=== PATIENT | male | born 1975 | race Caucasian/White ===

== ENCOUNTER 2022-12-13 11:54 | Emergency (ER) | payer SELFPAY ==
[2022-12-13 11:58] VITALS: BP 175/89; PULSE 101; RESP 18; TEMP 36.6; O2SAT 95; BMI 25.1
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
--- NOTE | 2022-12-13 12:19 | EKG12_ITS ---
Test Reason : Blood Pressure : / mmHG Vent. Rate : 093 BPM Atrial Rate : 093 BPM P-R Int : 168 ms QRS Dur : 106 ms QT Int : 364 ms P-R-T Axes : 054 029 043 degrees QTc Int : 452 ms Normal sinus rhythm Minimal voltage criteria for LVH, may be normal variant ( Sokolow-Martinez ) Septal infarct , age undetermined Cannot rule out Inferior infarct , age undetermined Abnormal ECG Confirmed by J CARLOS HUERTA, DANIEL ([id number]), web content editor FAMILIA RUBALCAVA ([id number]) on 12/16/2022 10:59:43 AM Referred By: Jaren Salazar Confirmed By:DANIEL WHITMAN MD
--- NOTE | 2022-12-13 12:25 | ED.RN ---
NO OLD EKGS LISTED.
[2022-12-13] MEDS: 0.9% Normal Saline 1,000 ML 1000 ML IV (12:30)
[2022-12-13 12:38] LABS: Absolute Lymphocyte Count 1.61 X10^3/uL (0.83-4.51); Absolute Neutrophil Count 10.4 X10^3/uL (2.0-7.7); Basophil# 0.05 X10^3/uL; Basophil% 0.4 % (0-1); Eosinophil# 0.03 X10^3/uL; Eosinophils% 0.2 % (0-5); Hemoglobin 18.4 g/dL (13.0-16.5); Lymphocyte # 1.61 X10^3/ul (0.83-4.51); Lymphocyte % 12.4 % (19-41); Mean Corp Hgb Conc 35.4 g/dL (32-36); Mean Corpuscular Hgb 37.2 pg (27.0-32.0); Mean Corpuscular Volume 105.1 fL (80-94); Mean Platelet Vol. 9.3 fl (6.2-12.0); Monocyte# 0.92 X10^3/uL; Monocyte% 7.1 % (0-10); NRBC Flagged by Analyzer 0 % (0-5); Neutrophil # 10.36 X10^3/uL (2.7-7.7); Neutrophil % 79.5 % (47-70); Platelet Count 191 K/mm3 (150-450); RBC Distribution Width CV 12.1 % (11.6-14.6); RBC Distribution Width SD 47.4 fl (35.1-43.9); Red Blood Count 4.95 M/mm3 (4.6-6.2)
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
[2022-12-13 12:59] LABS: ALB/GLOB Ratio 1.1 RATIO (0.9-2.4); AST(SGOT) 47 U/L (15-37); Alanine Aminotransfer ALT/SGPT 52 U/L (16-61); Alkaline Phosphatase 61 U/L (45-117); Anion Gap 8 (5-15); BUN 10 mg/dL (7-18); BUN/Creat Ratio 10.4 RATIO (10-20); Calcium,Total 9.3 mg/dL (8.5-10.1); Chloride 102 mmol/L (98-107); Creatinine, Serum 0.96 mg/dL (0.70-1.30); EST Glomerular Filtration Rate 89 mL/min (>60); Est Glom Filt Rate - Afr Amer 107 mL/min (>60); Estimated Creatinine Clearance 108.22 ml/min; Globulin 3.7 g/dL (2.2-4.2); Glucose 80 mg/dL (74-106); Protein, Total 7.7 g/dL (6.4-8.2); Sodium Level 134 mmol/L (136-145); Troponin-I HS 19 pg/mL (3.0-78.0)
[2022-12-16 11:56] LABS: Pathologist Review Reviewed
== END 2022-12-13 14:06 | disposition home or self-care (01) ==
PROVIDERS: Emergency Provider Emergency Medicine; Referring Provider Emergency Medicine; Visit Provider Emergency Medicine
DX: S06.0X0A Concussion without loss of consciousness, initial encounter (principal); R11.10 Vomiting, unspecified; M25.512 Pain in left shoulder; M54.9 Dorsalgia, unspecified; M25.551 Pain in right hip; V49.9XXA Car occupant (driver) (passenger) injured in unspecified traffic accident, initial encounter
CPT/HCPCS: 70450; 73030; 73502; 80053; 84484; 85025; 93005; 96360; 99283; J7030; A4216

== ENCOUNTER → 2023-09-26 | Outpatient (CLI) | payer MEDICAID, SELFPAY ==
--- NOTE | 2023-09-26 15:17 | MRI_ITS ---
STUDY: MRI LEFT SHOULDER REASON FOR EXAM: Male, 48 years old. pain TECHNIQUE: Standardized fat and water weighted pulse sequences were obtained in all 3 orthogonal planes. COMPARISON: X-ray 12/13/2022 FINDINGS: Normal supraspinatus tendon. Normal infraspinatus tendon. Normal subscapularis tendon. Normal teres minor tendon. Normal supraspinatus muscle. Normal infraspinatus muscle. Normal subscapularis muscle. Normal teres minor muscle. Normal glenohumeral articulation. Normal humeral head and visualized proximal humerus. Normal biceps labral complex. Normal intracapsular long biceps tendon. Normal labrum. Normal capsulo- ligamentous complex. Normal rotator interval. Normal acromioclavicular articulation. There is a Type II morphology (curved), with a neutral orientation. There is no subacromial-subdeltoid bursal fluid. There is thickening of the coracohumeral ligament with low-signal material partially effacing the subcoracoid fat triangle, compatible with adhesive capsulitis in the rotator cuff interval. Normal quadrilateral space. Normal axillary space. Normal deltoid muscle. Normal trapezius muscle. MRI/Upper Ext Joint Only(Routine) IMPRESSION: Suspect clinical adhesive capsulitis. Electronically Signed: Gideon Coyle MD at 20:58 EST ,
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
== END | disposition home or self-care (01) ==
LOC: MRI 15:16
PROVIDERS: Referring Provider Orthopaedic Surgery Sports Medicine; Visit Provider Orthopaedic Surgery Sports Medicine
DX: M25.512 Pain in left shoulder (principal)
CPT/HCPCS: 73221

== ENCOUNTER 2023-10-10 12:55 | Outpatient (RCR) | payer MEDICAID, SELFPAY ==
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
--- NOTE | 2023-12-08 11:30 | HP.PT.NRP ---
Patient Information Patient Information: CYRIL REED was seen in my office for initial evaluation on 10/10/23. The following Plan of Care was established for this patient: POC Established Initial Frequency: 2x /Week Initial Duration: 4 Weeks Anticipated Interventions Patient/Client Instruction: Educate patient on: Condition and Plan of Care For the Purpose of:: To decrease pain, To increase ROM, To improve nutrient delivery to tissue, To increase oxygenation perfusion, To improve muscle performance and motor function, To improve ability to perform ADL's, To increase tolerance to activity/condition/position, To improve ability of physical actions for home/community/work/leisure, To improve health of tissue, To decrease soft tissue restriction, To increase flexibility/ROM, To assume or resume ADL's, To reduce risk of recurrence, To prevent re-injury and To improve tolerance to ADL's Therapeutic Exercise to Include: Strength training, Postural training, Flexibilty training, Passive ROM, Active ROM and Scapular Strength/Stabilization For the Purpose of:: To decrease pain, To increase ROM, To improve nutrient delivery to tissue, To increase oxygenation perfusion, To improve muscle performance and motor function, To increase tolerance to activity/condition/position, To improve ability of physical actions for home/community/work/leisure, To improve health of tissue, To decrease soft tissue restriction, To increase flexibility/ROM, To assume or resume ADL's and To improve tolerance to ADL's Manual Therapy Techniques to Include: Mobilization, Passive ROM and Soft tissue mobilization Comment: G-H For the Purpose of:: To decrease pain, To increase ROM, To improve nutrient delivery to tissue, To increase oxygenation perfusion, To improve health of tissue, To decrease soft tissue restriction and To increase flexibility/ROM TENS: Yes IF ES: Yes Cryotherapy (ice pack, ice massage): Yes Thermo therapy (hot pack): Yes Ultrasound (thermal/non thermal): Yes For the Purpose of:: To decrease pain, To increase ROM, To improve nutrient delivery to tissue, To increase oxygenation perfusion, To improve health of tissue and To decrease soft tissue restriction Last Seen Last Seen: This patient was last seen in our office . Pertinent comments regarding their Physical therapy will appear below: Patient was seen for PT for shoulder pain and frozen shoulder evaluation and HEP At this point I will be discontinuing this patient from physical therapy. I would be happy to see this patient again in the future if found appropriate by the physician. Thank you! Nils Bhat, PT, Cert MDT, OCS Balance/Gait/Functional tests Balance/Special Test Scores Quick DASH Score: 63.9862
== END 2023-10-10 19:00 | disposition home or self-care (01) ==
LOC: PT 12:55
PROVIDERS: Referring Provider Orthopaedic Surgery Sports Medicine; Visit Provider Orthopaedic Surgery Sports Medicine
DX: M75.02 Adhesive capsulitis of left shoulder (principal); M25.512 Pain in left shoulder
CPT/HCPCS: 97110; 97162

== ENCOUNTER 2024-05-05 07:02 | Day surgery (SDC) | payer MEDICAID, SELFPAY ==
[2024-05-05] VITALS (7 sets, daily range): BP systolic 106–147; BP diastolic 69–88; PULSE 77–100; RESP 16; TEMP 36.3–36.8; O2SAT 95–100; BMI 26.2
--- NOTE | 2024-05-05 07:14 | PCM.PRE.AN2 ---
ASA Classification* ASA Classification ASA Classification: 2 Assessment & Plan Anesthesia* Anesthesia Assessment Anesthesia Assessment: Discussed sedation and/or anesthesia options, risks, benefits, and alternatives with patient/parents/legal guardian/POA. Questions invited. The patient/parents/legal guardian/POA seems to understand and agrees to proceed with anesthesia plan. Reviewed the physical assessment, medical history, allergy history and patient home medications list prior to surgery/procedure/anesthetic and documented any changes. Performed airway and anesthesia risk assessments. Anesthesia Type Anesthesia Type: MAC Anesthesia Focused Assessment* Airway Assessment Mouth opens: >3 cm Mallampati Score: II Focused Labs Anesthesia Preop lab: CBC WBC 13.0 K/mm3 (4.4-11.0) H 12/13/22 12:30 RBC 4.95 M/mm3 (4.6-6.2) 12/13/22 12:30 Hgb 18.4 g/dL (13.0-16.5) H* 12/13/22 12:30 Hct 52.0 % (40-54) 12/13/22 12:30 Plt Count 191 K/mm3 (150-450) 12/13/22 12:30 CHEMISTRY Potassium 5.0 mmol/L (3.5-5.1) 12/13/22 12:30 Sodium 134 mmol/L (136-145) L 12/13/22 12:30 BUN 10 mg/dL (7-18) 12/13/22 12:30 Creatinine 0.96 mg/dL (0.70-1.30) 12/13/22 12:30 Glucose 80 mg/dL (74-106) 12/13/22 12:30 COAG Pre-Assessment Diagnosis/Proposed Procedure Planned Operative Procedure(s): CSCOPE Anesthesia History 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 When Was Last Pacemaker Check QUESTION #4 FULL TEXT: You/Your Family Experience fever (hyperthermia) with Anesthesia Last Oral Intake Last Oral intake: Last Oral Intake NPO since Meds taken in AM with sips of water? Meds patient instructed to take am of surgery PONV PONV - collections and archives director: PONV - collections and archives director Female No 05/04/24 12:24 HX of Motion Sickness Yes 05/04/24 12:24 HX of N/V After Surgery No 05/04/24 12:24 Non-Smoker No 05/04/24 12:24 Duration of Surgery greater No 05/04/24 12:24 than 60 minutes Number of Risk Factors 1 05/04/24 12:24 PONV Score Low Risk 05/04/24 12:24 Height & Weight Height & Weight: Anesthesia: Height & Weight Height 6 ft 2 in 03/04/24 15:11 Respiratory Assessment Respiratory Assessment - collections and archives director: Respiratory Tract Infection Hx - collections and archives director Hx Respiratory Tract Infection No 05/04/24 12:24 STOP Sleep Apnea STOP Sleep Apnea - collections and archives director: STOP Sleep Apnea - collections and archives director Hx Hypertension No 05/04/24 12:24 Hx Sleep Apnea No 05/04/24 12:24 CPAP BIPAP Do you snore loudly (louder No 05/04/24 12:24 than talking or can be heard Do you often feel tired/ Yes 05/04/24 12:24 fatigued/ sleepy during daytime? Has anyone observed you stop No 05/04/24 12:24 breathing during sleep? STOP Results Negative 05/04/24 12:24 QUESTION #5 FULL TEXT : Do you snore loudly (louder than talking or can be heard through closed doors)? 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 Specify any problems Hx of Preganancy in last 3 N/A 05/04/24 12:24 Months Nurse Filling Out Transfusion DSCHRIBER 05/04/24 12:24 & Questions: Date: 05/04/24 05/04/24 12:24 Time: 12:26 05/04/24 12:24 Patient unable to answer at this time (ie. confused, unrespo /Reproduction History /Reproductive History - collections and archives director: /Reproductive Hx- collections and archives director Hx Now No 05/04/24 12:24 Gestational Age (in weeks): EDC: Hx Hx Para Hx Section SAB No 05/04/24 12:24 Active Medications Active Medications: Current Medications Generic Name Dose Route Start Last Admin Trade Name Freq PRN Reason Stop Dose Admin Lactated Ringer's 1,000 mls @ 15 mls/hr 05/05/24 07:15 IV .Q48H HUONG PFSH Medical History Depression Anxiety Migraine headache Injury of head and neck Vertigo Gastric reflux Smoker Adhesive capsulitis of left shoulder Post-concussion vertigo Left shoulder pain Home Medications ?Medication ?Instructions ?Recorded ?Last Taken ?Type meclizine 25 mg tablet 25 mg PO DAILY PRN motion sickness 09/05/23 Unknown History ondansetron HCl 4 mg tablet 4 mg PO BID 09/05/23 Unknown History meloxicam 7.5 mg tablet 7.5 mg PO BID PRN frozen shoulder 11/14/23 Unknown Rx 2 weeks #30 tabs Hydrocortisone 2.5%/lidocaine 5% #30 ea 03/04/24 Unknown Rx suppository (cmpd) (hydrocortisone 2.5%/lidocaine 5% suppository (compound)) cyclobenzaprine 10 mg tablet 10 mg PO BID PRN spasms 03/04/24 Unknown History diazepam 5 mg tablet 5 mg PO BID PRN anxiety 03/04/24 Unknown History escitalopram oxalate 20 mg tablet 20 mg PO QDAY 03/04/24 Unknown History propranolol 80 mg capsule,24 80 mg PO QDAY 03/04/24 Unknown History hr,extended release pantoprazole 40 mg tablet,delayed 40 mg PO DAILY 05/04/24 Unknown History release rizatriptan 10 mg tablet 10 mg PO PRN PRN migraine headache 05/04/24 Unknown History Allergy/AdvReac Type Severity Reaction Status Date / Time No Known Allergies Allergy Verified 05/04/24 12:20 Surgical History Hx of hernia repair History of tonsillectomy Social History Smoking Status: Current every day smoker tobacco type: cigarettes alcohol intake: never Review of Systems (Anesthesia) ROS Narrative System reviewed and no additional complaints, except as documented.
--- NOTE | 2024-05-05 07:17 | H&P.OPEN ---
HPI - General General Date of Service: 05/05/24 HPI Narrative CYRIL REED, is a 48 M who presents for colonoscopy due to rectal bleeding. Patient is having issues with hemorrhoids for a while. Patient is still having bright red blood per rectum with some bowel movements. Patient did try the hydrocortisone suppositories and did have a little bit of symptom relief but not completely resolved and he did go back after completing. office visit 03/04/24 [facility] HPI: 48-year-old male presents due to bright red blood per rectum which he has had for the last 15 years off-and-on. Patient states has been more regular in the last year states he will get it about 4 times a week. Patient denies any hard stools has increased his fiber with a tablespoon of Metamucil daily. Patient states he drinks plenty of water. However patient still states that he spends a prolonged time on the toilet about 45 minutes to feel like he completely is emptied. Patient does have known hemorrhoids has gotten hydrocortisone cream as well as seeing Dr. Sebastian at [place] question whether he could possibly have a fissure but 1 was not definitively seen patient was given diltiazem cream. Patient not sure if that made any difference and he states his finger is usually bloody when he tried get it placed. Patient denies any family history of colon cancer. Patient never had previous colonoscopy. [facility] Medical History Depression Anxiety Migraine headache Injury of head and neck Vertigo Gastric reflux Smoker Adhesive capsulitis of left shoulder Post-concussion vertigo Left shoulder pain Home Medications ?Medication ?Instructions ?Recorded ?Last Taken ?Type meclizine 25 mg tablet 25 mg PO DAILY PRN motion sickness 09/05/23 Unknown History ondansetron HCl 4 mg tablet 4 mg PO BID 09/05/23 Unknown History meloxicam 7.5 mg tablet 7.5 mg PO BID PRN frozen shoulder 11/14/23 Unknown Rx 2 weeks #30 tabs Hydrocortisone 2.5%/lidocaine 5% #30 ea 03/04/24 Unknown Rx suppository (cmpd) (hydrocortisone 2.5%/lidocaine 5% suppository (compound)) cyclobenzaprine 10 mg tablet 10 mg PO BID PRN spasms 03/04/24 Unknown History diazepam 5 mg tablet 5 mg PO BID PRN anxiety 03/04/24 Unknown History escitalopram oxalate 20 mg tablet 20 mg PO QDAY 03/04/24 Unknown History propranolol 80 mg capsule,24 80 mg PO QDAY 03/04/24 Unknown History hr,extended release pantoprazole 40 mg tablet,delayed 40 mg PO DAILY 05/04/24 Unknown History release rizatriptan 10 mg tablet 10 mg PO PRN PRN migraine headache 05/04/24 Unknown History Allergy/AdvReac Type Severity Reaction Status Date / Time No Known Allergies Allergy Verified 05/04/24 12:20 Surgical History Hx of hernia repair History of tonsillectomy Social History Smoking Status: Current every day smoker tobacco type: cigarettes alcohol intake: never Past Medical/Surgical History Planned Operation Planned Operative Procedure(s): CSCOPE Previous Hospitalizations/Surgeries HX Hospitalizations: No Any Problems With Anesthesia: No You/Your Family Experience Fever (Hyperthermia) With Anes: No Cholinesterase deficiency: No Cardiovascular Hx Chest Pain within Last 2 months: No Hx Heart Attack: No Hx Hypertension: No Hx Cardiac Surgery/Stents/Etc.: No Respiratory Hx Chronic Obstructive Pulmonary Disease (COPD): No Hx Sleep Apnea: No Hx Respiratory Tract Infection/Cold (presently): No Do You Snore Loudly (louder than talking or can be heard): No Do You Often Feel Tired/ Fatigued/ Sleepy Dring Daytime?: Yes Has Anyone Observed You Stop Breathing During Sleep?: No Result (for STOP score): Negative Hx Smoking: No Smoking Status: Current every day smoker Neurological Hx Seizures: No Hx Multiple Sclerosis: No Hx Parkinson's Disease: No Does patient have nerve stimulator: No Blood Disorder Hx Anemia: No Reproduction : No Genitourinary Hx Dialysis: No Musculoskeletal Hx Arthritis: No Hx Rheumatoid Arthritis: No Endocrine Hx Diabetes: No Thyroid Disease: No Psycho/Social Hx Depression: No Hx Dementia: No Miscellaneous Hx Cancer: No Allergies No Known Allergies Allergy (Verified 05/04/24 12:20) Discharge Is Pt Admitted From a Long Term, or a Nursing Home: No After D/C, Where Do you Plan to Go: Return Home Physical Exam Const alert, oriented x3 and no apparent distress HEENT normocephalic and head/scalp atraumatic Resp normal respiratory effort Cardio regular rate GI soft to palpation and non-tender; Negative for non-distended Palpation: Negative for guarding Extremity no clubbing, cyanosis or edema Skin no rashes or lesions noted Neuro CN's II-XII intact bilaterally Psych mental status grossly normal Assessment & Plan Assessment/Plan (1) Rectal bleeding: (2) Hemorrhoid: Surgery Risks - Colonoscopy I discussed with the patient the risks of the procedure: Yes Risks Include but are not Limited To: Risks include but are not limited to: Bleeding, perforation requiring further surgery, inability to complete colonoscopy requiring barium enema.
[2024-05-05] MEDS: Lactated Ringers 1,000 ML 15 ML IV (07:37)
--- NOTE | 2024-05-05 08:00 | COLBX_PTH ---
PATIENT: CYRIL REED LOC: EN U#:[id number] AGE/SX: 48/M ROOM: RE05/05/[address]: Dr. Poly Nayak MD : 1975 BED: DIS: 05/05/2024 SPEC #: [id number] RECD: 05/05/24 11:44 STATUS: GLORIA MERY #: [id number] RUDDY: 05/05/24 08:[address]: Poly Nayak DEPT: SURGICAL PATHOLOGY RECD BY: Vikash Hazel ENTERED: 05/05/24 12:08 SP TYPE: COLON BX OTHR DR: Dang Devries PA-C Tissues: A - Descending colon B - Sigmoid colon biopsy C - Rectum, NOS Procedures: Surgery Specimen Level IV HEADER OPERATION: Colonoscopy, biopsy, polypectomy, ink, clip PRE-OP DIAGNOSIS: Rectal bleeding TISSUE SUBMITTED: A- Descending colon biopsy- hot snare at 80, B- Sigmoid polyp at 40, C- Rectum polyp MICROSCOPIC DIAGNOSIS A. Descending colon, biopsy at 80 cm: Fragments of tubular adenoma. B. Sigmoid polyp at 40cm, polypectomy: Predominantly inflammatory polyp with focal area of tubular adenoma. C. Rectum polyp, polypectomy: Tubular adenoma. 05/06/2024 COMMENT This case is discussed with Dr. Nayak on 05/06/2024. MICROSCOPIC DESCRIPTION Slides are reviewed. GROSS DESCRIPTION A. Received in fixative is one container labeled with the patient's name and designated Descending colon biopsy. The specimen consists of multiple fragments soft tissue of that in aggregate measure 1.5 x 0.6 x 0.3cm. The entire specimen is submitted in one cassette. B. Received in fixative is one container labeled with the patient's name and designated Sigmoid polyp. The specimen consists of a zamarripa-pink polyp measuring 1.5 x 1.0 x 0.7 cm. The presumed base is inked. The polyp is serially sectioned and submitted entirely in one cassette. C. Received in fixative is one container labeled with the patient's name and designated Rectum polyp. The specimen consists of a pink-red polyp measuring 0.6 x 0.5 x 0.5 cm. The presumed base is inked. The polyp is bisected and submitted entirely in one cassette. 05/05/2024 TC:1 CPT:46141o0
--- NOTE | 2024-05-05 08:58 | CT_ITS ---
STUDY: CT CHEST, ABDOMEN T PELVIS WITH CONTRAST REASON FOR EXAM: Male, 48 years old. Colon mass -- po and IV- chest /abd/pel RADIATION DOSAGE (If Supplied By Facility): CTDIvol = ( 17.87 ) mGy, DLP = ( 1852.64 ) mGycm TECHNIQUE: Transaxial imaging was performed following intravenous administration of IV 100mL Isovue-300. Multiplanar coronal and sagittal images were reformatted. Individualized dose optimization techniques were used for this CT. COMPARISON: No relevant priors. FINDINGS: CHEST Mild degree of emphysematous changes. There is no demonstrated pleural abnormality. Normal heart and pericardium. There are small lymph nodes within the mediastinum, which are normal in size and morphology most compatible with reactive lymph hyperplasia. Normal hilar regions. Normal unenhanced pulmonary arteries. There is mild atherosclerotic calcification of the aortic arch. There are degenerative changes of the thoracic spine. Small hiatal hernia. ABDOMEN Normal liver. Normal gallbladder and extrahepatic biliary system. Normal spleen. Normal pancreas. Normal bilateral adrenal glands. Normal right kidney. Normal left kidney. There is a small hiatal hernia. Normal small intestine. A metallic clip from prior colonoscopy and biopsy is seen in the mid descending colon. Circumferential wall thickening is seen at that site most likely representing the neoplastic process. There are multiple colonic diverticula consistent with diverticulosis. The appendix is visualized and appears normal. Normal abdominal aorta. Normal inferior vena cava. There is borderline retroperitoneal lymphadenopathy with enlarged nodes no greater than 10mm in the short axis diameter. Normal abdominal wall. There are degenerative changes of the visualized lumbar spine. PELVIS Diffuse bladder wall thickening. Prostatic calcifications. There is enlargement of the seminal vesicles more prominent on the left side. There is no pelvic fluid. There is no pelvic lymphadenopathy or mass lesion. Normal visualized pelvic arteries. CT/CT Chest, Abd, Pel w/Contrast IMPRESSION: Focal narrowing in the midportion of the descending colon. A metallic clip from prior biopsy is seen at that site. Sigmoid diverticulosis. Prostatic calcification. Enlargement of the seminal vesicles more prominent on the left side. Diffuse bladder wall thickening. Electronically Signed: Jack Chavis MD at 12:06 EDT ,
--- NOTE | 2024-05-05 09:05 | PCM.POST.ANE ---
Anesthesia: Postop Eval I Current Vital Signs Temperature: 97.3 F Pulse Rate: 79 Blood Pressure: 114/69 Respiratory Rate: 16 Pulse Ox: 100 Oxygen Delivery Method: Room Air Assessment Airway patent: Yes Spontaneous unlabored respirations: Yes Mental status: Asleep nausea: No Vomiting: No Anesthesia Complication: No Fluid Hydration Crystalloid volume administer (ml): 800 Total IV fluid infused: 800 Progress Note Anesthesia document: Postop Eval 1 completed: Yes
--- NOTE | 2024-05-05 09:06 | OP.COLON_ITS ---
Patient Name: Rudi Hope Procedure Date: 05/05/2024 7:49 AM Date of : 1975 Age: 48 Procedure: Colonoscopy Indications: Rectal bleeding Providers: Poly Nayak MD Medicines: Monitored Anesthesia Care Patient Profile: This is a 48 year old male. Last Colonoscopy: none. The patient's first colonoscopy is today. Complications: No immediate complications. Procedure: Pre-Anesthesia Assessment: - Prior to the procedure, a History and Physical was performed, and patient medications and allergies were reviewed. The patient's tolerance of previous anesthesia was also reviewed. The risks and benefits of the procedure and the sedation options and risks were discussed with the patient. All questions were answered, and informed consent was obtained. Prior Anticoagulants: The patient has taken no anticoagulant or antiplatelet agents. ASA Grade Assessment: Per anesthesia. After reviewing the risks and benefits, the patient was deemed in satisfactory condition to undergo the procedure. After I obtained informed consent, the scope was passed under direct vision. Throughout the procedure, the patient's blood pressure, pulse, and oxygen saturations were monitored continuously. The Colonoscope was introduced through the anus and advanced to the cecum, identified by the appendiceal orifice, ileocecal valve and palpation. The colonoscopy was performed without difficulty. The patient tolerated the procedure well. The quality of the bowel preparation was good. Scope In: 8:12:29 AM Scope Withdrawal Time 0 hours 39 minutes 33 seconds Scope Out: 8:57:02 AM Total Procedure Duration Time 0 hours 44 minutes 33 seconds Findings: Hemorrhoids were found on perianal exam. Bleeding internal hemorrhoids were found. The hemorrhoids were Grade II (internal hemorrhoids that prolapse but reduce spontaneously). A few small-mouthed diverticula were found in the sigmoid colon. A 10 mm polyp was found in the descending colon. The polyp was sessile. The polyp was removed with a piecemeal technique using a hot snare. Resection and retrieval were complete. Coagulation for hemostasis of bleeding caused by the procedure using heater probe was successful. To prevent bleeding after the polypectomy, one hemostatic clip was successfully placed. There was no bleeding at the end of the procedure. A 7 mm polyp was found in the rectum. The polyp was semi-pedunculated. The polyp was removed with a hot snare. Resection and retrieval were complete. A 12 mm polyp was found in the sigmoid colon. The polyp was semi-pedunculated. Polyp resection was incomplete due to the polypectomy being technically difficult and complex. Biopsies were taken with a cold forceps for histology. Area was successfully injected with [Volume] Renuka ink for tattooing. The exam was otherwise without abnormality. Impression: - Hemorrhoids found on perianal exam. - Bleeding internal hemorrhoids. - Diverticulosis in the sigmoid colon. - One 10 mm polyp in the descending colon, removed piecemeal using a hot snare. Resected and retrieved. Treated with a heater probe. Clip was placed. - One 7 mm polyp in the rectum, removed with a hot snare. Resected and retrieved. - One 12 mm polyp in the sigmoid colon. Biopsied. Injected. - The examination was otherwise normal. Recommendation: - Discharge patient to home. - Resume previous diet. - Continue present medications. - Await pathology results. - Perform a CT scan (computed tomography) of chest with contrast, abdomen with contrast and pelvis with contrast today. - Check liver enzymes (AST, ALT, alkaline phosphatase, bilirubin), hemogram with white blood cell count and platelets and electrolyte panel today. - Repeat colonoscopy is recommended for surveillance after piecemeal polypectomy. The colonoscopy date will be determined after pathology results from today's exam become available for review. Procedure Code(s): --- Professional --- 25945, Colonoscopy, flexible; with removal of tumor(s), polyp(s), or other lesion(s) by snare technique 00970, 59, Colonoscopy, flexible; with biopsy, single or multiple 47721, Colonoscopy, flexible; with directed submucosal injection(s), any substance Diagnosis Code(s): --- Professional --- K64.1, Second degree hemorrhoids D12.4, Benign neoplasm of descending colon D12.8, Benign neoplasm of rectum D12.5, Benign neoplasm of sigmoid colon K62.5, Hemorrhage of anus and rectum K57.30, Diverticulosis of large intestine without perforation or abscess without bleeding CPT copyright 2021 [employer]. All rights reserved. The codes documented in this report are preliminary and upon panel fitter review may be revised to meet current compliance requirements. MD Poly Mercado MD 05/05/2024 9:06:04 AM This report has been signed electronically. Number of Addenda: 0 Note Initiated On: 05/05/2024 7:49 AM
--- NOTE | 2024-05-05 09:07 | OP.CCLET_ITS ---
05/05/2024 Dang Quintero Pa-c Re : Colonoscopy procedure for Rudi Hope Dear Kayce This procedure was performed on Sunday, May 05, 2024. My impressions and recommendations are as follows: Impressions : - Hemorrhoids found on perianal exam. - Bleeding internal hemorrhoids. - Diverticulosis in the sigmoid colon. - One 10 mm polyp in the descending colon, removed piecemeal using a hot snare. Resected and retrieved. Treated with a heater probe. Clip was placed. - One 7 mm polyp in the rectum, removed with a hot snare. Resected and retrieved. - One 12 mm polyp in the sigmoid colon. Biopsied. Injected. - The examination was otherwise normal. Recommendations : - Discharge patient to home. - Resume previous diet. - Continue present medications. - Await pathology results. - Perform a CT scan (computed tomography) of chest with contrast, abdomen with contrast and pelvis with contrast today. - Check liver enzymes (AST, ALT, alkaline phosphatase, bilirubin), hemogram with white blood cell count and platelets and electrolyte panel today. - Repeat colonoscopy is recommended for surveillance after piecemeal polypectomy. The colonoscopy date will be determined after pathology results from today's exam become available for review. My findings are described in the full procedure note, which is enclosed. If I can be of further assistance, please feel free to contact me at Doctor phone number(s): , Work: . Sincerely, MD Poly Mercado MD 05/05/2024 9:06:04 AM This report has been signed electronically.
[2024-05-05 10:12] LABS: Absolute Lymphocyte Count 1.27 X10^3/uL (0.83-4.51); Absolute Neutrophil Count 8.7 X10^3/uL (2.0-7.7); Basophil# 0.05 X10^3/uL; Basophil% 0.5 % (0-1); Eosinophil# 0.03 X10^3/uL; Eosinophils% 0.3 % (0-5); Hematocrit 43.4 % (40-54); Hemoglobin 15.5 g/dL (13.0-16.5); Lymphocyte # 1.27 X10^3/ul (0.83-4.51); Lymphocyte % 11.7 % (19-41); Mean Corp Hgb Conc 35.7 g/dL (32-36); Mean Corpuscular Hgb 36.4 pg (27.0-32.0); Mean Corpuscular Volume 101.9 fL (80-94); Mean Platelet Vol. 9.1 fl (6.2-12.0); Monocyte# 0.81 X10^3/uL; Monocyte% 7.4 % (0-10); NRBC Flagged by Analyzer 0 % (0-5); Neutrophil % 79.7 % (47-70); Platelet Count 184 K/mm3 (150-450); RBC Distribution Width CV 12.5 % (11.6-14.6); RBC Distribution Width SD 46.8 fl (35.1-43.9); Red Blood Count 4.26 M/mm3 (4.6-6.2); White Blood Count 10.9 K/mm3 (4.4-11.0)
[2024-05-05 10:37] LABS: ALB/GLOB Ratio 1.1 RATIO (0.9-2.4); AST(SGOT) 27 U/L (15-37); Alanine Aminotransfer ALT/SGPT 32 U/L (16-61); Albumin, Serum 3.7 g/dL (3.2-5.0); Alkaline Phosphatase 54 U/L (45-117); Anion Gap 5 (5-15); BUN 3 mg/dL (7-18); BUN/Creat Ratio 3.8 RATIO (10-20); Calcium,Total 9.2 mg/dL (8.5-10.1); Chloride 101 mmol/L (98-107); Creatinine, Serum 0.78 mg/dL (0.70-1.30); EST Glomerular Filtration Rate 111 mL/min (>60); Est Glom Filt Rate - Afr Amer 134 mL/min (>60); Estimated Creatinine Clearance 128.04 ml/min; Globulin 3.3 g/dL (2.2-4.2); Glucose 119 mg/dL (74-106); Sodium Level 135 mmol/L (136-145)
--- NOTE | 2024-05-05 12:35 | PCM.POSTANE2 ---
Anesthesia Postop Eval I Sum Postop Eval Completion status Anesthesia document: Postop Eval 1 completed: Yes Anesthesia Postop Eval I Summary Anesthesia Postop Eval I Summary: Anesthesia Postop Eval I: Assessment Summary Airway patent Yes 05/05/24 09:06 Spontaneous unlabored Yes 05/05/24 09:06 respirations Mental status Asleep 05/05/24 09:06 nausea No 05/05/24 09:06 Vomiting No 05/05/24 09:06 Anesthesia Postop Eval I: Fluid Summary Crystalloid volume administer 800 05/05/24 09:06 (ml) Colloids volume administered ( ml) Blood Product volume administered (ml) Total IV fluid infused 800 05/05/24 09:06 Anesthesia Postop Eval I: Summary Notes Anesthesia Complication No 05/05/24 09:06 Anesthesia Complication Comment: Post-operative progress note Anesthesia: Postop Eval II Evaluation Mental status: Awake Pain Level: 0 nausea: No Vomiting: No
== END 2024-05-05 11:11 | disposition home or self-care (01) ==
LOC: EN 07:03 → AC 07:03
PROVIDERS: Visit Provider Surgery
PROC: 0DJD8ZZ Inspection of Lower Intestinal Tract, Via Natural or Artificial Opening Endoscopic (ICD-10-PCS; CPT 45378; principal; 2024-05-05 07:55)
DX: K62.5 Hemorrhage of anus and rectum (principal); K63.5 Polyp of colon; G43.909 Migraine, unspecified, not intractable, without status migrainosus; K62.1 Rectal polyp; K57.30 Diverticulosis of large intestine without perforation or abscess without bleeding; F32.A Depression, unspecified; F41.9 Anxiety disorder, unspecified; Z79.899 Other long term (current) drug therapy; K21.9 Gastro-esophageal reflux disease without esophagitis; F17.210 Nicotine dependence, cigarettes, uncomplicated; K64.1 Second degree hemorrhoids
CPT/HCPCS: 45381; 45380; 45385; 71260; 74177; 80053; 85025; 88305; J7120; Q9967; A4648; J2405

== ENCOUNTER 2024-10-20 07:02 | Day surgery (SDC) | payer MEDICAID, SELFPAY ==
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
[2024-10-20] VITALS (10 sets, daily range): BP systolic 118–143; BP diastolic 65–87; PULSE 73–92; RESP 14–20; TEMP 36.4–37.1; O2SAT 94–99; BMI 27.9
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
[2024-10-20] MEDS: 0.9% Normal Saline (1000mL) 1,000 ML 15 ML IV (07:39)
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
--- NOTE | 2024-10-20 08:30 | HEM_PTH ---
PATIENT: CYRIL REED LOC: EN U#:[id number] AGE/SX: 49/M ROOM: RE10/20/[address]: Dr. Poly Nayak MD : 1975 BED: DIS: 10/20/2024 SPEC #: [id number] RECD: 10/20/24 10:21 STATUS: GLORIA MERY #: [id number] RUDDY: 10/20/24 08:[address]: Poly Nayak DEPT: SURGICAL PATHOLOGY RECD BY: Viaksh Hazel ENTERED: 10/20/24 10:36 SP TYPE: HEMORRHOID OTHR DR: Dang Devries PA-C Tissues: HEMORRHOIDS Procedures: Surgery Specimen Level III HEADER OPERATION: Flexible sigmoidoscopy and hemorrhoidectomy PRE-OP DIAGNOSIS: Status post history of colonic polyps TISSUE SUBMITTED: Hemorrhoid tissue MICROSCOPIC DIAGNOSIS Hemorrhoid tissue, hemorrhoidectomy: Fragments of anorectal mucosa with congested and dilated blood vessels, consistent with hemorrhoid. PORFIRIORodney 10/21/2024 MICROSCOPIC DESCRIPTION Slides are reviewed. GROSS DESCRIPTION Received in fixative is one container labeled with the patient's name and designated Hemorrhoid tissue. The specimen consists of two pieces of pink mucosal tissue measuring 3 x 2.8 x 1.5cm and 1.5 x 1 x 1.2cm. Sections reveal congested cut surfaces. Heat Pump Installer sections are submitted in two cassettes. 10/20/2024 TC:5 CPT:08664
[2024-10-20] MEDS: BUPIVACAINE LIPOSOME/PF 20 ML VIAL OPERA.SITE (09:45)
[2024-10-20] MEDS: Dibucaine 30 GM Tube 1 APPLIC (10:02)
--- NOTE | 2024-10-20 10:06 | PCM.OPRPT ---
Operative Report (Standard) Operative Information Date of Procedure: 10/20/24 Pre-Operative Diagnosis: hemorrhoids, bright red blood per rectum Post-Operative Diagnosis: Same Surgery/Procedure Performed: Hemorrhoidectomy x 2, left lateral and right anterior gas or petroleum operator: Yes Hull Builder: Mario Wilkins Tasks completed by first aid instructor: Retracting Type of Anesthesia: General/Supplemental RN Documented Start/Stop Times: Operation Date: 10/20/24 08:30 Case Time Into Pre-Op 10/20/24 07:26 Anesthesia Start 10/20/24 08:47 Into Room 10/20/24 08:47 Procedure Start 10/20/24 08:54 Procedure End 10/20/24 10:03 Anesthesia End 10/20/24 10:09 Out of Room 10/20/24 10:09 Into Recovery 10/20/24 10:12 Out of Recovery 10/20/24 10:46 Into Phase II Recovery 10/20/24 10:47 Procedure Start Time: 08:54 Procedure Stop Time: 10:03 Select all DRAINS/GRAFTS/IMPLANTS that apply: None Special Medications: No antibiotics needed Estimated Blood Loss: 20 cc Specimen collected: Yes Description of specimen(s) removed: Hemorrhoidal tissue Description of surgery: The patient was brought into the operating room and MAC anesthesia was induced. He was placed in right lateral decubitus position. A timeout was completed verifying correct patient, procedure, site, position, and special equipment prior to beginning the procedure. The buttocks were taped apart. Perineum was prepared prepped and draped in standard sterile fashion. Local anesthesia was injected as a perianal nerve block-Exparel total of 20 cc used throughout the case. Anus carefully dilated. Small Hill-Pleitez retractor was introduced and 3 marginal pedicles identified. He was noted to have internal and external hemorrhoids at the left lateral and right anterior location with the left lateral being the larger of the 2. Each pedicle was excised in turn in the following fashion. 2-0 Vicryl suture was placed at the base of each of the pedicles and retracted externally to exteriorize the hemorrhoidal pedicles. An elliptical incision was made extending from perianal skin to anal rectal ring including both internal and external hemorrhoids and excising a minimal amount of anoderm. Her rose was used to separate the hemorrhoid from the underlying tissue. Careful not to involve any of the sphincter muscle. The pedicle was indicated from the base and sent to pathology. Hemostasis was achieved using electrocautery. Following the hemostasis the skin and mucosal incisions were closed with the running lock stitch of 2-0 chromic. A large Surgifoam with dibucaine was placed in the anus. A gauze pad tucked between the gluteal folds. The patient tolerated procedure well and was extubated and taken to the postanesthesia care unit in stable condition. Surgical Findings: See operative report Complications Complications: No
--- NOTE | 2024-10-20 10:10 | DCINST_ITS ---
Discharge Instructions Procedure Rectal Surgery Diet Discharge Diet: No restrictions Activity Discharge Activity: Return to Normal Activity and May Not Drive (while you are taking narcotic pain medications. Do not drive, work with heavy equipment or s ign legal documents for 24 hours after your surgery.) Additional Activity Instructions:: No strenuous activity, walking is fine and encourage. May feel better to lay a little more on 1 side versus the other and not flat on your back. Be aware that pain medications may cause nausea. You should typically eat light foods as you take your pain medications. Pain medications may also cause constipation, take stool softeners and have laxative?MiraLAX available Dressing / Incision Additional Dressing/Incision Instructions:: A local anesthetic plug was placed in the anal area, try not to expel for 24-[address] dibucaine ointment on the perianal area as needed. Sitz baths twice daily and after bowel movements. Follow Up Care Please Follow Up With: Poly Nayak MD When: Please call [phone] to schedule a follow up appointment to be seen 3 weeks after surgery. Any questions or concerns after 5 PM on the weekends call [phone] Test Results: Test results from this visit will be discussed in further detail at your follow- up appointment, if applicable. Discharge Plan Admission Attending Provider: Poly Nayak Primary Care Provider: Dang Devries Instructions Additional Instructions / Restrictions: Okay to take ibuprofen 400-600 mg PO q6hr PRN and Tylenol 650 to 1000 mg p.o. ev ramona 6 hours as needed along with the oxycodone. Take all pain meds with food. Oxycodone can cause constipation recommend taking daily stool softener (i.e. Colace/docusate) while taking the pain meds. Recommend starting some MiraLAX in 2-3 days if no bowel movement. If still no bowel movement the following day recommend taking additional MiraLAX. Print Language: Turkmen Discharge Orders/Prescriptions Prescriptions: New oxycodone 5 mg capsule 5 - 10 mg PO Q6H PRN (Reason: pain) 4 Days Qty: 20 0RF Continued meclizine 25 mg tablet 25 mg PO DAILY PRN (Reason: motion sickness) Patient Comments: take 1 tablet by mouth twice a day if needed for dizziness ondansetron HCl 4 mg tablet 4 mg PO BID Patient Comments: take 1 tablet by mouth every 8 hours if needed nausea OR vomiting MAY TAKE 2 TAS FOR SEVERE NAUSEA propranolol 80 mg capsule,extended release 24 hr 80 mg PO QDAY PRN (Reason: headache) cyclobenzaprine 10 mg tablet 10 mg PO BID PRN (Reason: spasms) (DME) hydrocortisone 2.5%/lidocaine 5% suppository (compound) Suppository See Rx Instructions .ROUTE Qty: 30 1RF Rx Instructions: insert rectally twice daily hydroxyzine pamoate 25 mg capsule 25 mg PO Q8H PRN (Reason: anxiety) rizatriptan 10 mg tablet 10 mg PO PRN PRN (Reason: migraine headache) pantoprazole 40 mg tablet,delayed release (DR/EC) 40 mg PO DAILY Referrals / Follow Up: Dang Devries PA-C [Primary Care Provider] - Disposition Disposition (needs filled in before D/C Order can be placed): Home, Self Care
--- NOTE | 2024-10-20 10:20 | PCM.POST.ANE ---
Anesthesia: Postop Eval I Current Vital Signs Temperature: 97.9 F Pulse Rate: 77 Blood Pressure: 127/65 Respiratory Rate: 14 Pulse Ox: 99 Oxygen Delivery Method: Room Air Assessment Airway patent: Yes Spontaneous unlabored respirations: Yes Mental status: Awake and Calm nausea: No Vomiting: No Anesthesia Complication: No Fluid Hydration Crystalloid volume administer (ml): 1,600 Total IV fluid infused: 1,600 Progress Note Anesthesia document: Postop Eval 1 completed: Yes
--- NOTE | 2024-10-20 10:28 | OP.COLON_ITS ---
Patient Name: Rudi Hope Procedure Date: 10/20/2024 8:40 AM Date of : 1975 Age: 49 Procedure: Colonoscopy Indications: incomplete removal of large inflammatory polyp- with focal adenoma Providers: Poly Nayak MD Referring MD: Dang Quintero Pa-c Medicines: Monitored Anesthesia Care Patient Profile: This is a 49 year old male. Last Colonoscopy: 04/2024. Complications: No immediate complications. Procedure: Pre-Anesthesia Assessment: - Prior to the procedure, a History and Physical was performed, and patient medications and allergies were reviewed. The patient's tolerance of previous anesthesia was also reviewed. The risks and benefits of the procedure and the sedation options and risks were discussed with the patient. All questions were answered, and informed consent was obtained. Prior Anticoagulants: The patient has taken no anticoagulant or antiplatelet agents. ASA Grade Assessment: Per anesthesia. After reviewing the risks and benefits, the patient was deemed in satisfactory condition to undergo the procedure. After I obtained informed consent, the scope was passed under direct vision. Throughout the procedure, the patient's blood pressure, pulse, and oxygen saturations were monitored continuously. The Colonoscope was introduced through the anus and advanced to the sigmoid colon to examine a polypectomy site. This was the intended extent. The colonoscopy was performed without difficulty. The patient tolerated the procedure well. The quality of the bowel preparation was adequate. Scope In: 8:54:04 AM Scope Out: 9:15:08 AM Total Procedure Duration Time 0 hours 21 minutes 4 seconds Findings: Hemorrhoids were found on perianal exam. Non-bleeding external and internal hemorrhoids were found. The hemorrhoids were Grade I (internal hemorrhoids that do not prolapse). The rectum, sigmoid colon and descending colon appeared normal. Areas of tattoo were seen. Area was carefully reviewed distal to this where the previous polyp was located. No evidence of unresected polyp in this area. Impression: - Hemorrhoids found on perianal exam. - Non-bleeding external and internal hemorrhoids. - The rectum, sigmoid colon and descending colon are normal. - No specimens collected. Recommendation: - Discharge patient to home. - Resume previous diet. - Continue present medications. - Repeat colonoscopy in 2 years for surveillance due to previous large polyps. Procedure Code(s): --- Professional --- 72226, 53,PT, Colonoscopy, flexible; diagnostic, including collection of specimen(s) by brushing or washing, when performed (separate procedure) Diagnosis Code(s): --- Professional --- K64.0, First degree hemorrhoids CPT copyright 2021 [employer]. All rights reserved. The codes documented in this report are preliminary and upon prosthetics technician review may be revised to meet current compliance requirements. MD Poly Mercado MD 10/20/2024 10:27:31 AM This report has been signed electronically. Number of Addenda: 0 Note Initiated On: 10/20/2024 8:40 AM
--- NOTE | 2024-10-20 10:28 | OP.CCLET_ITS ---
10/20/2024 Dang Quintero Pa-c Re : Colonoscopy procedure for Rudi Hope Dear Kayce This procedure was performed on Sunday, October 20, 2024. My impressions and recommendations are as follows: Impressions : - Hemorrhoids found on perianal exam. - Non-bleeding external and internal hemorrhoids. - The rectum, sigmoid colon and descending colon are normal. - No specimens collected. Recommendations : - Discharge patient to home. - Resume previous diet. - Continue present medications. - Repeat colonoscopy in 2 years for surveillance due to previous large polyps. My findings are described in the full procedure note, which is enclosed. If I can be of further assistance, please feel free to contact me at Doctor phone number(s): , Work: . Sincerely, MD Poly Mercado MD 10/20/2024 10:27:31 AM This report has been signed electronically.
--- NOTE | 2024-10-20 10:42 | PCM.POSTANE2 ---
Anesthesia Postop Eval I Sum Postop Eval Completion status Anesthesia document: Postop Eval 1 completed: Yes Anesthesia Postop Eval I Summary Anesthesia Postop Eval I Summary: Anesthesia Postop Eval I: Assessment Summary Airway patent Yes 10/20/24 10:30 [email or web address] Spontaneous unlabored Yes 10/20/24 10:30 [email or web address] respirations Mental status Awake,Calm 10/20/24 10:30 [email or web address] nausea No 10/20/24 10:30 [email or web address] Vomiting No 10/20/24 10:30 [email or web address] Anesthesia Postop Eval I: Fluid Summary Crystalloid volume administer 1,600 10/20/24 10:30 [email or web address] (ml) Colloids volume administered ( ml) Blood Product volume administered (ml) Total IV fluid infused 1,600 10/20/24 10:30 [email or web address] Anesthesia Postop Eval I: Summary Notes Anesthesia Complication No 10/20/24 10:30 [email or web address] Anesthesia Complication Comment: Post-operative progress note Anesthesia: Postop Eval II Evaluation Mental status: Awake and Calm Pain Level: 3 nausea: No Vomiting: No Complications Anesthesia Complication: No
[2024-10-20] MEDS: oxyCODONE 5 MG Tablet PO (11:15)
--- NOTE | 2024-10-20 11:55 | SUR.PHASEII ---
pain scale from 6/10 to 3/10 after oxycodone 5mg
== END 2024-10-20 12:00 | disposition home or self-care (01) ==
LOC: EN 07:02 → AC 07:04
PROVIDERS: Visit Provider Surgery
PROC: (CPT 46260; principal; 2024-10-20 08:15)
PROC: 0DJD8ZZ Inspection of Lower Intestinal Tract, Via Natural or Artificial Opening Endoscopic (ICD-10-PCS; CPT 45378; principal; 2024-10-20 08:15)
DX: K64.0 First degree hemorrhoids (principal); K21.9 Gastro-esophageal reflux disease without esophagitis; F17.210 Nicotine dependence, cigarettes, uncomplicated; K64.4 Residual hemorrhoidal skin tags; Z86.0100 Personal history of colon polyps, unspecified; Z79.899 Other long term (current) drug therapy
CPT/HCPCS: 46260; 45378; 00902; 88304; J0666; J1610; J2405